=== PATIENT | male | born 1980 | race African-American/Black ===

== ENCOUNTER 2018-12-24 09:13 | Emergency (ER) | payer MEDICARE, MEDICAID ==
[~2018-12-24] VITALS: Ht 193 cm; Wt 91.0 kg
[~2018-12-24 09:13] MED LIST: ABILIFY; DIPHENHYDRAMINE; MIRATAZAPINE; SEROQUEL
[2018-12-24 10:00] VITALS: BP 144/83
== END 2018-12-24 10:08 | disposition home or self-care (01) ==
LOC: ER 09:13
DX: F32.9 Major depressive disorder, single episode, unspecified (principal); Z76.0 Encounter for issue of repeat prescription; I10 Essential (primary) hypertension; E78.00 Pure hypercholesterolemia, unspecified
CPT/HCPCS: 99283

== ENCOUNTER 2022-01-23 10:27 | Emergency (ER) | payer MEDICARE, MEDICAID ==
[~2022-01-23] VITALS: Ht 182.9 cm; Wt 100.0 kg
[2022-01-23 10:32] VITALS: BP 152/89
[2022-01-23] MEDS ORDERED: BUSP10TA3 MT (10:37)
[2022-01-23] MEDS ORDERED: GABA-533 MT (10:37)
[2022-01-23] MEDS ORDERED: SERT-422 MT (10:37)
[2022-01-23] MEDS ORDERED: BENZ1TAB7 MT (10:37)
== END 2022-01-23 10:54 | disposition home or self-care (01) ==
LOC: ER 10:27
DX: Z76.0 Encounter for issue of repeat prescription (principal); E78.00 Pure hypercholesterolemia, unspecified; I10 Essential (primary) hypertension; Z86.59 Personal history of other mental and behavioral disorders
CPT/HCPCS: 99283

== ENCOUNTER 2022-05-06 13:38 | Emergency (ER) | payer MEDICARE, MEDICAID ==
[~2022-05-06] VITALS: Ht 193 cm; Wt 100.0 kg
[~2022-05-06 13:38] MED LIST changes: +BENZ1TAB7 MT; +BUSP10TA3 MT; +GABA-533 MT; +SERT-422 MT
[2022-05-06 13:52] VITALS: BP 145/83
[2022-05-06] MEDS ORDERED: GABA-533 MT (14:55)
[2022-05-06] MEDS ORDERED: BUSP10TA3 MT (14:55)
[2022-05-06] MEDS ORDERED: BENZ1TAB7 MT (14:55)
[2022-05-06] MEDS ORDERED: SERT-422 MT (14:55)
== END 2022-05-06 15:31 | disposition home or self-care (01) ==
LOC: ER 13:38
DX: Z76.0 Encounter for issue of repeat prescription (principal); F20.9 Schizophrenia, unspecified
CPT/HCPCS: 99281

== ENCOUNTER 2022-06-11 14:58 | Emergency (ER) | payer MEDICARE, MEDICAID ==
[~2022-06-11] VITALS: Ht 193 cm; Wt 93.0 kg
[2022-06-11 15:08] VITALS: BP 114/76
[2022-06-11] MEDS ORDERED: BENZ1TAB7 MT (17:17)
[2022-06-11] MEDS ORDERED: BUSP10TA3 MT (17:17)
[2022-06-11] MEDS ORDERED: GABA-533 MT (17:17)
[2022-06-11] MEDS ORDERED: SERT-422 MT (17:17)
[2022-06-11] MEDS ORDERED: NAPR-681 PO (17:17)
== END 2022-06-11 17:47 | disposition home or self-care (01) ==
LOC: ER 15:09
DX: M54.9 Dorsalgia, unspecified (principal); M54.2 Cervicalgia; I10 Essential (primary) hypertension; Z76.0 Encounter for issue of repeat prescription; Z86.59 Personal history of other mental and behavioral disorders; V49.50XA Passenger injured in collision with unspecified motor vehicles in traffic accident, initial encounter; Y93.89 Activity, other specified; Y92.89 Other specified places as the place of occurrence of the external cause; Y99.8 Other external cause status
CPT/HCPCS: 99283

== ENCOUNTER 2022-08-17 12:41 | Emergency (ER) | payer MEDICARE, MEDICAID ==
[~2022-08-17] VITALS: Ht 193 cm; Wt 100.0 kg
[~2022-08-17 12:41] MED LIST changes: +NAPR-681 PO
[2022-08-17 13:22] VITALS: BP 155/64
[2022-08-17] MEDS ORDERED: KETOROLAC 60MG/2ML VIAL IM ONE (14:00)
[2022-08-17] MEDS ORDERED: BO1 TP (15:11)
[2022-08-17] MEDS ORDERED: NAPR-681 MT (15:11)
[2022-08-17] MEDS ORDERED: METH-773 MT (15:11)
== END 2022-08-17 15:41 | disposition home or self-care (01) ==
LOC: ER 12:41
DX: S39.012A Strain of muscle, fascia and tendon of lower back, initial encounter (principal); L73.8 Other specified follicular disorders; E78.00 Pure hypercholesterolemia, unspecified; I10 Essential (primary) hypertension; F20.9 Schizophrenia, unspecified; F41.9 Anxiety disorder, unspecified; X58.XXXA Exposure to other specified factors, initial encounter; Y93.89 Activity, other specified; Y92.018 Other place in single-family (private) house as the place of occurrence of the external cause
CPT/HCPCS: 96372; 99283; J1885

== ENCOUNTER 2022-09-05 11:04 | Emergency (ER) | payer MEDICARE, MEDICAID ==
[~2022-09-05] VITALS: Ht 185.4 cm; Wt 93.0 kg
[~2022-09-05 11:04] MED LIST changes: +BO1 TP; +METH-773 MT; +NAPR-681 MT
[2022-09-05] MEDS ORDERED: BENZ1TAB7 MT (14:44)
[2022-09-05] MEDS ORDERED: BUSP10TA3 MT (14:44)
[2022-09-05] MEDS ORDERED: NAPR-681 PO (14:44)
[2022-09-05] MEDS ORDERED: SERT-422 MT (14:44)
[2022-09-05] MEDS ORDERED: GABA-533 MT (14:44)
[2022-09-05] MEDS ORDERED: NAPROXEN 250MG TABLET PO ONE (14:45)
[2022-09-05] MEDS ORDERED: LIDOCAINE 5% PATCH TOP SCH (14:45)
[2022-09-05 14:58] VITALS: BP 125/75
== END 2022-09-05 14:59 | disposition home or self-care (01) ==
LOC: ER 11:04
DX: Z76.0 Encounter for issue of repeat prescription (principal); I10 Essential (primary) hypertension; E78.00 Pure hypercholesterolemia, unspecified; F41.9 Anxiety disorder, unspecified; F31.9 Bipolar disorder, unspecified; F20.9 Schizophrenia, unspecified; M54.9 Dorsalgia, unspecified; Z20.822 Contact with and (suspected) exposure to COVID-19
CPT/HCPCS: 87426; 99283

== ENCOUNTER 2023-03-25 14:22 | Emergency (ER) | payer BC, MEDICAID, MEDICARE ==
[~2023-03-25] VITALS: Ht 193 cm; Wt 100.0 kg
[~2023-03-25 14:22] MED LIST changes: -BENZ1TAB7 MT; +BENZ1TAB78 MT
[2023-03-25 14:32] VITALS: BP 145/97; PULSE 112; RESP 20; TEMP 97.9; O2SAT 100
[2023-03-25] MEDS ORDERED: BUSP10TA4 MT (22:50)
[2023-03-25] MEDS ORDERED: QUET50TA MT (22:50)
[2023-03-25] MEDS ORDERED: GABA-533 MT (22:50)
[2023-03-25] MEDS ORDERED: NAPR-420 MT (22:50)
== END 2023-03-25 18:50 | disposition left against medical advice (07) ==
LOC: ER 15:40
DX: Z53.21 Procedure and treatment not carried out due to patient leaving prior to being seen by health care provider (principal)
CPT/HCPCS: 99281

== ENCOUNTER 2023-03-25 22:03 | Emergency (ER) | payer BC ==
[~2023-03-25] VITALS: Ht 182.9 cm; Wt 93.0 kg
[2023-03-25] MEDS ORDERED: NAPR-420 MT (22:50)
[2023-03-25] MEDS ORDERED: QUET50TA MT (22:50)
[2023-03-25] MEDS ORDERED: BUSP10TA4 MT (22:50)
[2023-03-25] MEDS ORDERED: GABA-533 MT (22:50)
[2023-03-25 23:56] VITALS: BP 133/87; O2SAT 98
[2023-03-25 23:59] VITALS: PULSE 101; RESP 16; TEMP 98.5
== END 2023-03-26 | disposition home or self-care (01) ==
LOC: ER 22:13
DX: Z76.0 Encounter for issue of repeat prescription (principal); Z79.899 Other long term (current) drug therapy; Z00.00 Encounter for general adult medical examination without abnormal findings
CPT/HCPCS: 99281

== ENCOUNTER 2023-07-04 09:32 | Emergency (ER) | payer BC, MEDICAID ==
[~2023-07-04] VITALS: Ht 193 cm; Wt 91.0 kg
[~2023-07-04 09:32] MED LIST changes: +BUSP10TA4 MT; -GABA-533 MT; +GABA-534 MT; +NAPR-420 MT; +QUET50TA MT
[2023-07-04 09:41] VITALS: BP 151/96; TEMP 98.7; O2SAT 99
[2023-07-04 09:50] VITALS: PULSE 82
== END 2023-07-04 11:54 | disposition left against medical advice (07) ==
LOC: ER 09:32
DX: Z53.21 Procedure and treatment not carried out due to patient leaving prior to being seen by health care provider (principal)
CPT/HCPCS: 99281

== ENCOUNTER 2024-03-03 04:59 | Emergency (ER) | payer MEDICAID, BC ==
[~2024-03-03] VITALS: Ht 193 cm; Wt 100.0 kg
[2024-03-03 05:08] VITALS: O2SAT 99
[2024-03-03] MEDS ORDERED: MAGNESIUM/ALUMINUM HYDROXIDE/SIMETHICONE 30ML UDC PO STA (05:25)
[2024-03-03] MEDS ORDERED: ONDANSETRON 4MG ODT PO STA (05:25)
[2024-03-03 05:44] LABS: BASOPHILS % 0.3 % (0.0-2.0); EOSINOPHILS % 0.3 % (0.0-5.0); HEMATOCRIT. 46.9 % (42.0-52.0); HEMOGLOBIN. 16.6 g/dL (14.0-18.0); LYMPHOCYTES % 7.3 % (20.0-50.0); MEAN CORPUSCULAR HEMOGLOBIN 31.5 pg (28.0-32.0); MEAN CORPUSCULAR HGB CONC 35.4 g/dL (31.0-37.0); MEAN CORPUSCULAR VOLUME 88.9 fL (80.0-94.0); MEAN PLATELET VOLUME 7.5 fl (7.4-10.4); MONOCYTES % 5.1 % (2.0-8.0); PLATELET 302 x1000/uL (130-400); RED BLOOD CELL COUNT 5.28 mill/uL (4.7-6.1); WHITE BLOOD COUNT 7.2 x1000/uL (4.5-11.0)
[2024-03-03 05:49] LABS: CHLORIDE 106 mEq/L (98-107); POTASSIUM 3.9 mEq/L (3.5-5.1); SODIUM 137 mEq/L (136-145)
[2024-03-03 05:50] LABS: CALCIUM 9.8 mg/dL (8.7-10.4); CARBON DIOXIDE 27 mEq/L (21-32)
[2024-03-03 05:55] LABS: CREATININE 1.2 mg/dL (0.6-1.3); GLUCOSE 101 mg/dL (70-105); UREA NITROGEN BLOOD 13 mg/dL (9-23)
[2024-03-03 05:57] LABS: ALANINE AMINOTRANSFERASE 23 IU/L (10-49); ASPARTATE AMINOTRANSFERASE 18 IU/L (<34); BILIRUBIN DIRECT 0.4 mg/dL (<=3.0); BILIRUBIN TOTAL 1.3 mg/dL (0.1-1.0)
[2024-03-03 06:01] LABS: INR 0.9; PROTHROMBIN TIME 10.5 sec (9.6-11.0)
[2024-03-03 06:26] LABS: CLARITY URINE CLEAR (CLEAR); COLOR URINE DARK YELLOW (YELLOW); GLUCOSE URINE NEGATIVE (NEGATIVE); KETONES URINE TRACE (NEGATIVE); LEUKOCYTE ESTERASE URINE TRACE (NEGATIVE); NITRITE URINE NEGATIVE (NEGATIVE); OCCULT BLOOD URINE NEGATIVE (NEGATIVE); PH URINE 5.5 (4.5-8.0); PROTEIN URINE NEGATIVE (NEGATIVE); SPECIFIC GRAVITY URINE 1.029 (1.005-1.030); UROBILINOGEN URINE 0.2 E.U./dL (0.2-1.0)
[2024-03-03] MEDS ORDERED: TOPUD PO (06:40)
[2024-03-03] MEDS ORDERED: ONDA4TAB50 PO (06:40)
[2024-03-03 07:42] LABS: MUCUS URINE 3+ /lpf (NONE/TRACE); SQUAMOUS EPITHELIAL CELL URINE RARE /lpf (RARE/1+)
[2024-03-03 07:45] LABS: BACTERIA URINE TRACE; RBC URINE NONE SEEN /hpf (0-2)
[2024-03-03 07:46] LABS: FINE GRANULAR CASTS URINE 0-5 /lpf; HYALINE CASTS URINE 0-5 /lpf
[2024-03-03 08:15] VITALS: BP 149/86; PULSE 79; RESP 18; TEMP 97.8
[2024-03-03] MEDS: MAGNESIUM/ALUMINUM HYDROXIDE/SIMETHICONE 30ML UDC PO NR (08:30)
[2024-03-03] MEDS: ONDANSETRON 4MG ODT PO NR (08:35)
[2024-03-03] MEDS: DICYCLOMINE 10 MG/5 ML ORAL SYR PO STA (08:35)
== END 2024-03-03 08:15 | disposition home or self-care (01) ==
LOC: ER 04:59
DX: R11.2 Nausea with vomiting, unspecified (principal); Z79.899 Other long term (current) drug therapy
CPT/HCPCS: 99284; 80076; 80048; 81003; 83690; 85025; 85610; 36415; Q0162